=== PATIENT | female | born 1945 | race Two or more races ===

== ENCOUNTER 2021-02-16 10:00 | Day surgery (SDC) | payer OTHER ==
[~2021-02-16 10:00] MED LIST: AMLODIPINE BESY10 MG PO; CELEBREX200MG PO; CYMBALTA60 MG PO; GABAPENTIN300 M2 PO; LIPITOR20 MG PO; TEMAZEPAM15 MG PO
== END 2021-02-16 16:10 | disposition home or self-care (01) ==
LOC: CIR.AMB 10:00
PROVIDERS: ATTEND Student in an Organized Health Care Education/Training Program
DX: T85.12 Displacement of implanted electronic stimulator of nervous system (principal)